=== PATIENT | male | born 1955 | race Caucasian/White ===

== ENCOUNTER 2017-07-13 09:56 | Outpatient (CLI) | payer OTHER ==
--- NOTE | 2017-07-13 10:35 | RAD ---
FRONTAL AND LATERAL IMAGING OF CHEST: Date: 07/13/17 COMPARISON: 01/03/17. HISTORY: Dyspnea. FINDINGS: Mild increased linear interstitial density noted, most prominent in the medial left lung base. There is no pneumothorax, pleural fluid, focal consolidation, or alveolar edema. Calcified densities overli e the scapula inferior to the coracoid process on the right, which may signify interarticular loose b odies within the right shoulder joint. IMPRESSION: Stable appearance of the chest. No focal consolidation or alveolar edema. POS: [facility]
== END 2017-07-13 09:57 | disposition home or self-care (01) ==
LOC: RAD 09:56
PROVIDERS: ATTEND Internal Medicine Critical Care Medicine
DX: R06.00 Dyspnea, unspecified (principal)
CPT/HCPCS: 71020

== ENCOUNTER 2018-11-22 12:59 | Outpatient (CLI) | payer OTHER ==
--- NOTE | 2018-11-22 13:16 | RAD ---
TWO VIEW CHEST: History: Dyspnea. Comparison: 07-13-17 FINDINGS: The lungs appear clear. No infiltrate or vascular congestion. Heart and mediastinum unremarkable. Oss eous structures unremarkable. Focal sclerotic density overlying the right scapula is a stable finding. IMPRESSION: No acute abnormality. POS: [facility]
== END 2018-11-22 13:00 | disposition home or self-care (01) ==
LOC: RAD 12:59
PROVIDERS: ATTEND Internal Medicine Critical Care Medicine
DX: R06.00 Dyspnea, unspecified (principal)
CPT/HCPCS: 71046

== ENCOUNTER 2019-07-31 14:45 | Outpatient (CLI) | payer OTHER ==
--- NOTE | 2019-07-31 15:31 | RAD ---
PA AND LATERAL CHEST: 07/31/19 HISTORY: Dyspnea. Heart size and mediastinum are within normal limits. The lungs are clear of infiltrates. No pulmonary nodules are identified. Ossified densities seen beneath the coracoid process on the right are felt to represent articular bodies. IMPRESSION: No active intrathoracic disease. POS: [facility]
== END 2019-07-31 14:46 | disposition home or self-care (01) ==
LOC: RAD 14:45
PROVIDERS: ATTEND Internal Medicine Critical Care Medicine
DX: R06.00 Dyspnea, unspecified (principal)
CPT/HCPCS: 71046